=== PATIENT | female | born 1960 | race Caucasian/White ===

== ENCOUNTER 2023-07-06 17:30 | Observation (INO) | payer BC, SELFPAY ==
[2023-07-06] VITALS (24 sets, daily range): BP systolic 130–242; BP diastolic 75–129; PULSE 79–113; RESP 12–26; TEMP 36.7–37.3; O2SAT 81–100; BMI 38.0; BMI 38.1
--- NOTE | 2023-07-06 17:55 | XR_ITS ---
The [address] [address] Patient Name: MAI TAMEZ MRN: [id number] date: 1960 Sex: F Assigned Patient Location: ER Current Patient Location: ER Accession/Order Number: [id number] Exam Date: 07/06/2023 18:00 Report Date: 07/06/2023 18:13 At the request of: CATHY MORATAYA Procedure: XR chest 1V EXAM: XR chest 1V at 1802 hours HISTORY: CP COMPARISON: None. TECHNIQUE: AP upright portable chest x-ray FINDINGS: The heart is not enlarged and the vasculature is not distended. No acute infiltrate, effusion or pneumothorax is identified. The osseous structures are grossly intact. XR/XR chest 1V IMPRESSION: No acute infiltrate or evidence of cardiac decompensation. Direct comparison with a previous study may be helpful in determining the chronicity of these findings. Electronically authenticated by: ENOC CLIFFORD Date: 07/06/2023 18:13
--- NOTE | 2023-07-06 17:55 | ECG_ITS ---
The [facility] Test Date: 2023-07-06 Pat Name: MAI TAMEZ Department: Room: - Gender: Female Database Admin: : 1960 Requested By: [id number] Order Number: [id number] Reading MD: MARCIO ANTONIO Measurements Intervals [place] Rate: 93 P: 60 CT: 146 QRS: 84 QRSD: 130 T: 57 QT: 372 QTc: 423 Interpretive Statements 1100 Sinus rhythm 2450 Right bundle branch block 9150 abnormal ECG No previous ECG available for comparison Electronically Signed On 07-07-2023 7:05:12 EDT by MARCIO ANTONIO
--- NOTE | 2023-07-06 17:59 | ED.CHESTPAI1 ---
HPI - Chest Pain General Chief Complaint: Chest Pain Stated Complaint: Chin Pain Time Seen by Provider: 07/06/23 17:51 Source: patient Mode of arrival: walk-in Limitations: no limitations History of Present Illness HPI narrative: 63-year-old female presents to the Emergency Department for pain in her chin which went down into her neck and then into the chest. She was sitting drinking coffee when this started two hours ago. No shortness breath or back pain. It does not go to her arms. She has no personal history of heart disease but has a history of hypertension and doesn't take her blood pressure medicine. No trauma or fever. She has a history of anxiety. Related Data Allergies Allergy/AdvReac Type Severity Reaction Status Date / Time Sulfa (Sulfonamide AdvReac Intermediate Verified 07/06/23 17:40 Antibiotics) Review of Systems ROS Narrative A ten point review of systems is negative except as noted above. PFSH PFSH Social History Smoking status: Former smoker Exam Narrative Exam Narrative: Nurses note and vital signs reviewed and patient is not hypoxic. General: The patient appears well and in no apparent distress. Patient is resting comfortably on cart. Skin: Warm, dry, no pallor noted. There is no rash noted. Head: Normocephalic, atraumatic Eye: Normal conjunctiva, no drainage Ears, Nose, Mouth, and Throat: oral mucosa is moist. Nares patent. Cardiovascular: Regular Rate and Rhythm Respiratory: Patient is in no distress, no accessory muscle use, lungs are clear to auscultation, no wheezing, rales or rhonchi Back: non-tender GI: soft and nontender Musculoskeletal: The patient has no evidence of calf tenderness, no pitting edema, symmetrical pulses noted bilaterally Neurological: A&O x4, normal speech, tremorous Psychiatric: Cooperative Constitutional Vital Signs, click to edit/add: Last Vital Signs Temp 98.1 F 07/06/23 17:40 Pulse 97 H 07/06/23 17:40 Resp 18 07/06/23 17:40 BP 242/129 H 07/06/23 17:40 Pulse Ox 100 07/06/23 17:40 Course Vital Signs Vital signs: Vital Signs Temperature 98.1 F 07/06/23 17:40 Pulse Rate 97 H 07/06/23 17:40 Respiratory Rate 18 07/06/23 17:40 Blood Pressure 242/129 H 07/06/23 17:40 Pulse Oximetry 100 07/06/23 17:40 Temperature 98.1 F 07/06/23 17:40 Pulse Rate 97 H 07/06/23 17:40 Respiratory Rate 18 07/06/23 17:40 Blood Pressure 242/129 H 07/06/23 17:40 Pulse Oximetry 100 07/06/23 17:40 MDM - Chest Pain MDM Narrative Medical decision making narrative: blood pressure was initially elevated upon arrival. Tests are ordered and the patient is signed out to Dr. Duggan at 7 PM at change of shift. Differential Diagnosis Differential diagnosis: Likely pneumothorax, unstable angina pectoris, atypical chest pain, st elevation myocardial infarction and chest pain Heart Score History: Slightly/Non-Suspicious ECG: Normal Age: >45-<65 years Risk Factors: 1 or 2 Risk Factors Discharge Plan Discharge Patient Disposition: Still a Patient
[2023-07-06 18:37] LABS: Basophils Percent Auto 0.3 % (0.2-2.0); Eosinophils Absolute Auto 0.1 10^3/uL (0.0-0.7); Hemoglobin 12.3 g/dL (12.0-16.0); Immature Granulocytes Abs Auto 0.03 10^3/uL (0.00-0.03); Immature Granulocytes Pct Auto 0.5 % (0.0-0.5); Lymphocytes Absolute Auto 1.3 10^3/uL (1.2-3.8); Lymphocytes Percent Auto 21.5 % (20.5-60.0); Mean Corpuscular HGB Conc 34.2 g/dL (29.9-35.2); Mean Corpuscular Volume 96.5 fL (81.0-99.0); Mean Platelet Volume 9.5 fL (9.5-13.5); Monocytes Absolute Auto 0.8 10^3/uL (0.3-0.8); Monocytes Percent Auto 12.4 % (1.7-12.0); Neutrophils Absolute Auto 3.9 10^3/uL (1.4-6.5); Neutrophils Percent Auto 63.3 % (43.0-75.0); Platelet Count 309 10^3/uL (150-450); Red Blood Count 3.73 10^6/uL (4.20-5.40); Red Cell Distribution Width 13.8 % (11.0-15.0); White Blood Count 6.1 10^3/uL (4.0-11.0)
[2023-07-06 18:45] LABS: Anion Gap 13.4; BUN Creatinine Ratio 15.2; Calcium 8.7 mg/dL (8.5-10.1); Carbon Dioxide 26.6 mmol/L (21.0-32.0); Chloride 91 mmol/L (98-107); Estimated GFR (African America >60 (>=60); Estimated GFR (Non-African Ame >60 (>=60); Glucose 100 mg/dL (74-106); Sodium 127 mmol/L (136-145); Troponin I High Sensitivity 8.2 pg/mL (4.0-51.3)
[2023-07-06] MEDS: HYDRALAZINE HCL 20 MG/ML VIAL 10 MG IVP (19:08)
[2023-07-06] MEDS: ENALAPRILAT DIHYDRATE 1.25 MG/ML VIAL IV (20:24)
[2023-07-06] MEDS: LABETALOL HCL 20 MG/4 ML SYRINGE IVP (20:25)
--- NOTE | 2023-07-06 22:02 | P.PN_ITS ---
Progress Note: Subjective Subjective Interval history: PCP Dr. ROCHE PAtient arrives to Ed after onset at 4 pm while sitting having coffee with chin discomfort and chest left sided tightness. ED found patient to have non ischemic ekg with negative troponin with SBP >200 tx with single dose hydralzine with > 20 % improvement in blood pressure. PAtient chest tightness has improved to a 1/10 and chin discomfort resolved. no history of similar pain. PAtient has hx of hypothyroidism and is compliant with synthroid. However, patient has hx of htn and is non compliant with medications (initially on MIKI and switched to ARB then to another but due to side effects does not take). ROS is negative for dyspnea, syncope. + for LE edema which is chronic for 20 years as she states without recent change. no recent long travel. HX: HTN, hypothyroidism, alcohol abuse PSH: gastric bypass and does not take nsaids. SH: quit smoking tobacco in 1987; last marijuana was one month ago. OTher recreational drugs tried school age but none recent. THE PATIENT DRINKS ~ 6 X 12 OUNCE BEERS PER DAY AND HAS BEEN TOLD BY DOCTOR REGARDING DX OF ALCOHOL ABUSE. Exam Constitutional Vital Signs, click to edit/add: Last Vital Signs Temp 99.2 F 07/06/23 20:56 Pulse 82 07/06/23 20:56 Resp 16 07/06/23 20:56 BP 155/78 H 07/06/23 20:56 Pulse Ox 97 07/06/23 20:56 O2 Del Method Room Air 07/06/23 20:56 Common normals: oriented x3 General appearance: well developed HENMT Common normals: head/scalp atraumatic Chest Chest: symmetrical chest wall rise Respiratory Common normals: normal respiratory effort Cardio Common normals: regular rate and regular rhythm GI Common normals: Normal to inspection, nondistended, normoactive bowel sounds present Extremity Other: bilateral LE edema Neuro Common normals: oriented x3 Progress Note: Objective Labs Labs: Short CBC 07/06/23 Range/Units 18:20 WBC 6.1 (4.0-11.0) 10^3/uL Hgb 12.3 (12.0-16.0) g/dL Hct 36.0 (36.0-48.0) % Plt Count 309 (150-450) 10^3/uL BMP 07/06/23 18:20 Sodium 127 L Potassium 4.0 Chloride 91 L Carbon Dioxide 26.6 BUN 12.0 Creatinine 0.79 Glucose 100 Calcium 8.7 Progress Note: A&P Assessment and Plan (1) Chest pain: (2) Hypertension: (3) Thyroid condition: Plan 1. Chest tightness: With elevated blood pressure and non compliance consideration of heart strain thus will perform serial enzymes and continue with telemetry at this time. AM consultation with cardiology as needed however medicine team can likely arrange for stress test. NTG prn for pain however patient is hesitant to take anti htn meds due to side effects including headache. 2. HTN: HTN is less likely HTN urgency/emergency and more likely chronic due to ETOH abuse and medication non compliance: head CT non acute. Will restart her medications if she is willing to take but I am not going to force her to have IV hydralazine. Ultimately the patient has the capcity to refuse medications but will continue to educate on necessity. 3. Hypothyroidi: TSH to be added to morning labs and restart meds. 4. ETOH abuse. Benzos and ciwa protocol to follow. GI and DVT prophylaxisis to be placed. PAtient is a full code. Telemedicine Attestation Telemedicine Attestation I conducted this encounter from [from home office in [facility]] via secure live, [id number] video conference with the patient, located at [facility] with [nurse Imani]. Prior to the interview, the risks and benefits of telemedicine were discussed with the patient and verbal consent was obtained.
[2023-07-06] MEDS: ASPIRIN 325 MG TABLET.DR PO (22:41)
[2023-07-06] MEDS: OMEPRAZOLE 20 MG CAPSULE.DR PO (22:43)
[2023-07-07] VITALS (9 sets, daily range): BP systolic 143–162; BP diastolic 74–88; PULSE 72–88; RESP 14–25; TEMP 36.5; O2SAT 75–98
[2023-07-07] MEDS: 0.9 % SODIUM CHLORIDE 1,000 ML 125 ML IV (02:30)
[2023-07-07] MEDS: LEVOTHYROXINE SODIUM 75 MCG TABLET PO (04:18)
[2023-07-07 05:05] LABS: Basophils Percent Auto 0.5 % (0.2-2.0); Eosinophils Absolute Auto 0.1 10^3/uL (0.0-0.7); Eosinophils Percent Auto 1.6 % (0.9-7.0); Hematocrit 32.9 % (36.0-48.0); Hemoglobin 11.2 g/dL (12.0-16.0); Immature Granulocytes Abs Auto 0.01 10^3/uL (0.00-0.03); Immature Granulocytes Pct Auto 0.2 % (0.0-0.5); Lymphocytes Absolute Auto 1.1 10^3/uL (1.2-3.8); Lymphocytes Percent Auto 19.8 % (20.5-60.0); Mean Corpuscular Hemoglobin 32.7 pg (26.7-34.0); Mean Corpuscular Volume 95.9 fL (81.0-99.0); Mean Platelet Volume 9.6 fL (9.5-13.5); Monocytes Absolute Auto 0.7 10^3/uL (0.3-0.8); Monocytes Percent Auto 12.5 % (1.7-12.0); Neutrophils Absolute Auto 3.8 10^3/uL (1.4-6.5); Neutrophils Percent Auto 65.4 % (43.0-75.0); Platelet Count 288 10^3/uL (150-450); Red Blood Count 3.43 10^6/uL (4.20-5.40); Red Cell Distribution Width 13.7 % (11.0-15.0); White Blood Count 5.8 10^3/uL (4.0-11.0)
[2023-07-07 05:34] LABS: Alanine Aminotransferase 24 U/L (14-59); Albumin Globulin Ratio 0.9; Albumin Level 3.3 g/dL (3.4-5.0); Alkaline Phosphatase 84 U/L (46-116); Anion Gap 11.8; Aspartate Amino Transferase 25 U/L (15-37); Bilirubin Total 0.6 mg/dL (0.2-1.0); Calcium 8.5 mg/dL (8.5-10.1); Carbon Dioxide 26.6 mmol/L (21.0-32.0); Chloride 92 mmol/L (98-107); Estimated GFR (African America >60 (>=60); Estimated GFR (Non-African Ame >60 (>=60); Globulin 3.7 g/dL; Glucose 89 mg/dL (74-106); Potassium 3.4 mmol/L (3.5-5.1); Sodium 127 mmol/L (136-145)
[2023-07-07 08:34] LABS: Troponin I High Sensitivity 16.1 pg/mL (4.0-51.3)
[2023-07-07 08:54] LABS: Estimated Average Glucose 103 mg/dL; Glycohemoglobin A1C 5.2 % (4.5-6.2)
[2023-07-07] MEDS: ENOXAPARIN SODIUM 40 MG/0.4 ML SYRINGE SUBQ (08:56)
[2023-07-07] MEDS: OMEPRAZOLE 20 MG CAPSULE.DR PO (08:56)
[2023-07-07 09:01] LABS: Chol HDL Ratio 1.8; Cholesterol 195 mg/dL (<=200); HDL Cholesterol 110 mg/dL (40-60); Thyroid Stimulating Hormone 4.937 uIU/mL (0.358-3.740); Triglycerides 32 mg/dL (<=150); VLDL CHOLESTEROL 6.4 mg/dL
--- NOTE | 2023-07-07 10:11 | P.HP_ITS ---
H&P: HPI History of Present Illness Chief complaint: Chin Pain, Chest Pain, Malignant, HTN Narrative: patient is a 63-year-old female with past medical history of alcoholism, uncontrolled hypertension secondary to medical noncompliance, hypothyroidism and obesity who presented to the emergency room last night with chest pain. She states that she was outside gardening and she started to have some left chin pain which then proceeded to be left sided chest pain. The pain was present for several minutes she notes that she has chronic neck pain and thought maybe this was coming from that. She denies any sweating or shortness of breath associated with the chest pain. She rate she states that she has a history of hypertension and she has tried many medications without relief. She has had a lot of side effects with medications in the past so has not taken any medications for blood pressure lately. she denies having a prior cardiac workup in the past. She denies any family history of sudden cardiac or myocardial infarctions. At the time of admission exam patient denies any active chest pain and says it has resolved. She is pretty adamant this morning about leaving she has a appointment with a donor services coordinator. It also appears that she is in slight alcohol withdrawal and does admit to drinking quite a bit daily. She has no desire to quit. history of smoking but quit in the 80's Review of Systems ROS Narrative ROS: a complete review of systems were reviewed with patient and are positive as below or listed in History of Chief Complaint. General: no fever, chills, night sweats Head: no headache, trauma, visual changes, nausea or vomiting Skin: no reported rashes, itching or sores Eyes: no blurriness of vision Ears: no reported hearing loss, vertigo, earache, or tinnitus Throat: no sore throat, hoarseness, swelling of neck, or tongue pain Heart: chest pain has resolved this morning Lungs: no shortness of breath or cough GI: no diarrhea or vomiting/nausea Urinary: no urinary urgency, frequency or pain Neuro: no numbness or tingling HEM: no bleeding issues or bruising ENDO: no thyroid problems Psych: no anxiety or depression [facility] Medical History (Updated 07/06/23 @ 21:55 by Tj Recinos) Hypertension ?I10 - Essential (primary) hypertension (ICD-10) Thyroid condition ?E07.9 - Disorder of thyroid, unspecified (ICD-10) Surgical History H/O gastric bypass ?Z98.84 - Bariatric surgery status (ICD-10) Social History Smoking status: Former smoker Meds Home Medications and Allergies Home Medications Medication Instructions Recorded Confirmed Type levothyroxine 75 mcg tablet 75 mcg PO DAILY 07/06/23 07/06/23 History semaglutide 0.25 mg or 0.5 mg (2 0.25 mg subcut QWEEK 07/06/23 07/06/23 History mg/3 mL) subcutaneous pen injector (Ozempic) tizanidine 4 mg tablet 4 mg PO DAILY 07/06/23 07/07/23 History carvedilol 3.125 mg tablet (Coreg) 3.125 mg PO BID 30 days #60 tabs 07/07/23 Rx Allergies Allergy/AdvReac Type Severity Reaction Status Date / Time Sulfa (Sulfonamide AdvReac Intermediate Verified 07/06/23 17:40 Antibiotics) NSAIDS (Non-Steroidal AdvReac Unknown Verified 07/06/23 22:14 Anti-Inflamma Exam Narrative Exam Narrative: General: Patient is alert, and oriented to person, place and time very anxious and is actively getting dressed while i enter the room to leave Skin: no visible rashes, or ulcers Head: atraumatic, acephalic Eyes: PERRLA, no nystagmus present, conjunctiva clear, no scleral icterus Ears: normal gross auditory acuity Nose: symmetric, no discharge, no maxillary or frontal sinus tenderness Mouth/Throat: no erythema, exudate, or tonsillar enlargement, normal dentition Neck: no masses palpated, normal thyroid, no JVD or audible carotid bruits Heart: Normal rate and rhythm, no murmurs/rubs/gallops Lungs: no audible wheezes, crackles and normal breath sounds all lung moses Abdomen: Normal audible bowel sounds, no distension, No palpable masses, no organomegaly, no rebound/guarding/ or rigidity Musculoskeletal: no swelling bilateral lower extremities Neuro: CN II-X grossly intact, normal sensation upper and lower extremities Constitutional Vital Signs, click to edit/add: Last Vital Signs Temp 97.7 F 07/07/23 08:25 Pulse 72 07/07/23 08:25 Resp 16 07/07/23 08:25 BP 162/88 H 07/07/23 08:25 Pulse Ox 98 07/07/23 08:25 O2 Del Method Room Air 07/07/23 08:25 Results Labs Labs: Short CBC 07/06/23 07/07/23 Range/Units 18:20 04:26 WBC 6.1 5.8 (4.0-11.0) 10^3/uL Hgb 12.3 11.2 L (12.0-16.0) g/dL Hct 36.0 32.9 L (36.0-48.0) % Plt Count 309 288 (150-450) 10^3/uL BMP 07/06/23 07/07/23 18:20 04:26 Sodium 127 L 127 L Potassium 4.0 3.4 L Chloride 91 L 92 L Carbon Dioxide 26.6 26.6 BUN 12.0 9.0 Creatinine 0.79 0.69 Glucose 100 89 Calcium 8.7 8.5 Liver Function 07/07/23 Range/Units 04:26 Total Bilirubin 0.6 (0.2-1.0) mg/dL AST 25 (15-37) U/L ALT 24 (14-59) U/L Alkaline Phosphatase 84 (46-116) U/L Albumin 3.3 L (3.4-5.0) g/dL Assessment and Plan Assessment and Plan (1) Chest pain: Assessment and Plan: patient was admitted overnight for chest pain rule out, troponins ?3 have all been negative. There have been no reported events on telemetry. Normal lipid panel, hemoglobin A1c. Slight elevation in thyroid-stimulating hormone but she is also taking levothyroxine. Changes in medication can be made by her primary care physician as an outpatient. Elevated blood pressure we discussed starting Coreg 3.125 by mouth twice a day. Also discussed the need for outpatient follow- up probable exercise stress test with echocardiogram. Patient is adamant about leaving and agrees to follow-up outpatient.no ischemic changes noted on EKG, right bundle branch block findings discussed with patientall abnormal chest x- ray. (2) Hypertension: Assessment and Plan: will start and be discharged home on Coreg 3.125 mg by mouth twice a day she is to follow-up with her primary care physician for blood pressure check (3) Thyroid condition: Assessment and Plan: slight elevation in thyroid-stimulating hormone should have her recheck thyroid studies in approximately one month, no changes in her levothyroxine dosage at this time. Plan patient is full code Lovenox for deep vein thrombosis prophylaxis Patient is admitted to observation status and will be discharged home later today.
--- NOTE | 2023-07-07 10:24 | PC.NURSE ---
pt requested after visit with to discharge, BERNIE. Did not want follow up scheduled as she will, already established with Dr. Diaz. Walked from room to enterance.
--- NOTE | 2023-07-07 12:32 | CM.NOTE ---
Rounds made with tesfaye Wynn for discharge to home today. No discharge needs identified.
--- NOTE | 2023-07-07 14:09 | P.DS_ITS ---
DS: Providers Provider Date of admission: 07/06/23 20:47 Primary care physician: PRASANTH MONTERO Admitting clinician: Antonio Gates Attending physician on discharge: Jenifer Bishop DS: Diagnosis Discharge Diagnosis (1) Chest pain: (2) Hypertension: (3) Thyroid condition: DS: Summary Hospital Course Hospital Course: (1) for Chest pain: patient was admitted overnight for chest pain rule out, troponins ?3 have all been negative. There have been no reported events on telemetry. Normal lipid panel, hemoglobin A1c. Slight elevation in thyroid-stimulating hormone but she is also taking levothyroxine. Changes in medication can be made by her primary care physician as an outpatient. Elevated blood pressure we discussed starting Coreg 3.125 by mouth twice a day. Also discussed the need for outpatient follow- up probable exercise stress test with echocardiogram. Patient is adamant about leaving and agrees to follow-up outpatient.no ischemic changes noted on EKG, right bundle branch block findings discussed with patient. normal chest x-ray. discharged home today, with no active chest pain, close outpatient followup (2) Hypertension: Assessment and Plan: will start and be discharged home on Coreg 3.125 mg by mouth twice a day she is to follow-up with her primary care physician for blood pressure check (3) Thyroid condition: Assessment and Plan: slight elevation in thyroid-stimulating hormone should have her recheck thyroid studies in approximately one month, no changes in her levothyroxine dosage at this time. (4)alcoholism- no desire to quit at this time return to the ER with any worsening symptoms. Status at Discharge Functional status at discharge: independent ambulation Overall status at discharge: patient is back to baseline Time Spent with Patient Time attestation: Total time spent providing and/or coordinating discharge services: Time spent: less than 30 minutes Exam Narrative Exam Narrative: no changes on exam at the time of discharge from what was documented in the history and physical dated 07/07/23 Constitutional Vital Signs, click to edit/add: Last Vital Signs Temp 97.7 F 07/07/23 08:25 Pulse 72 07/07/23 08:25 Resp 16 07/07/23 08:25 BP 162/88 H 07/07/23 08:25 Pulse Ox 98 07/07/23 08:25 O2 Del Method Room Air 07/07/23 08:25 DS: Data Data Completed and Pending Labs on day of discharge: Labs from last 24 hours 07/07/23 07/07/23 07/06/23 08:10 04:26 23:58 WBC 5.8 RBC 3.43 L Hgb 11.2 L Hct 32.9 L MCV 95.9 MCH 32.7 MCHC 34.0 RDW 13.7 Plt Count 288 MPV 9.6 Neut % (Auto) 65.4 Lymph % (Auto) 19.8 L [place] % (Auto) 12.5 H Eos % (Auto) 1.6 Baso % (Auto) 0.5 Neut # (Auto) 3.8 Lymph # (Auto) 1.1 L [place] # (Auto) 0.7 Eos # (Auto) 0.1 Baso # (Auto) 0.0 Abs Immat Gran (auto) 0.01 Imm/Tot Granulo (auto) 0.2 Sodium 127 L Potassium 3.4 L Chloride 92 L Carbon Dioxide 26.6 Anion Gap 11.8 BUN 9.0 Creatinine 0.69 Est GFR ( Amer) >60 Est GFR (Non-Af Amer) >60 BUN/Creatinine Ratio 13.0 Glucose 89 Estimat Average Glucose 103 Hemoglobin A1c 5.2 Calcium 8.5 Total Bilirubin 0.6 AST 25 ALT 24 Alkaline Phosphatase 84 Troponin I High Sens 16.1 30.0 Total Protein 7.0 Albumin 3.3 L Globulin 3.7 Albumin/Globulin Ratio 0.9 Triglycerides 32 Cholesterol 195 LDL Cholesterol, Calc 79.0 VLDL Cholesterol 6.4 HDL Cholesterol 110 H Cholesterol/HDL Ratio 1.8 TSH 4.937 H 07/06/23 18:20 WBC 6.1 RBC 3.73 L Hgb 12.3 Hct 36.0 MCV 96.5 MCH 33.0 MCHC 34.2 RDW 13.8 Plt Count 309 MPV 9.5 Neut % (Auto) 63.3 Lymph % (Auto) 21.5 [place] % (Auto) 12.4 H Eos % (Auto) 2.0 Baso % (Auto) 0.3 Neut # (Auto) 3.9 Lymph # (Auto) 1.3 [place] # (Auto) 0.8 Eos # (Auto) 0.1 Baso # (Auto) 0.0 Abs Immat Gran (auto) 0.03 Imm/Tot Granulo (auto) 0.5 Sodium 127 L Potassium 4.0 Chloride 91 L Carbon Dioxide 26.6 Anion Gap 13.4 BUN 12.0 Creatinine 0.79 Est GFR ( Amer) >60 Est GFR (Non-Af Amer) >60 BUN/Creatinine Ratio 15.2 Glucose 100 Estimat Average Glucose Hemoglobin A1c Calcium 8.7 Total Bilirubin AST ALT Alkaline Phosphatase Troponin I High Sens 8.2 Total Protein Albumin Globulin Albumin/Globulin Ratio Triglycerides Cholesterol LDL Cholesterol, Calc VLDL Cholesterol HDL Cholesterol Cholesterol/HDL Ratio TSH Discharge Plan Discharge Disposition: (FBC OBS) Home, Self-Care Condition: Fair Discharge Medications: New carvedilol [Coreg] 3.125 mg tablet 3.125 mg PO BID 30 Days Qty: 60 0RF Rx Instructions: must administer with a meal/food Continued tizanidine 4 mg tablet 4 mg PO DAILY Rx Instructions: PER RETAIL HX - TAKE 1/2 TO 1 TABLET PO QHS - LAST FILLED 06/28/23 #30 levothyroxine 75 mcg tablet 75 mcg PO DAILY Ozempic 0.25 mg or 0.5 mg (2 mg/3 mL) pen injector 0.25 mg subcut QWEEK Patient Comments: Current dose 0.5 mg 1 X per week Rx Instructions: for 4 weeks Activity: increase activity as tolerated Diet: advance to your usual diet Patient Instructions: Chest Pain (GEN) Follow Up Appointments: PCP 3-5 days and pt request to schedule, discuss outpatient stress test/echo Discharge Date/Time: 07/07/23 10:19
--- NOTE | 2023-07-08 15:05 | CM.DCFOLLOWU ---
1st attempt discharge follow up call made by Lindsey Balbuena on 07/08/23, no answer at this time
--- NOTE | 2023-07-11 15:01 | CM.DCFOLLOWU ---
Person spoke with: patient How are you feeling? fine How is your pain? no pain Did you understand your discharge instructions? yes Do you have any questions about your discharge instructions? no Were you given any prescriptions at discharge? yes Were you able to get your prescriptions filled? yes Do you understand how to take your medications as ordered? yes Do you have any questions about your follow up appointment and do you plan to keep your follow up appointment? no questions, she has not called to schedule and she is aware she needs to call and schedule. Is there anything else that you would like to discuss? no Questions/Comments/Concerns/Other:
== END 2023-07-07 10:19 | disposition home or self-care (01) ==
LOC: ER 20:04 → ICU 20:53
PROVIDERS: Emergency Medicine; Admitting Provider Family Medicine; Emergency Provider Emergency Medicine; PCP Family Medicine; Visit Provider Nurse Practitioner
DX: R07.9 Chest pain, unspecified (principal); I10 Essential (primary) hypertension; E07.9 Disorder of thyroid, unspecified; F10.20 Alcohol dependence, uncomplicated; Z98.84 Bariatric surgery status; Z87.891 Personal history of nicotine dependence; Z79.899 Other long term (current) drug therapy; Z79.890 Hormone replacement therapy
CPT/HCPCS: 36415; 71045; 80048; 80053; 80061; 83036; 84443; 84484; 85025; 93005; 96372; 96374; 96375; 99285; G0378; Q3014